=== PATIENT | female | born 1980 | race Caucasian/White ===

== ENCOUNTER 2020-07-21 09:50 | Outpatient (CLI) | payer BC ==
--- NOTE | 2020-07-21 11:40 | Ultrasound Report ---
ULTRASOUND RENAL INDICATION / CLINICAL INFORMATION: LOW BACK PAIN. COMPARISON: None available. FINDINGS: RIGHT KIDNEY: Length = 10.5 cm. [normal > 9 cm] - Parenchymal Thickness = 1.6 cm. [normal > 1.5 cm] - Echogenicity: Normal. - Hydronephrosis: None. - Cyst or mass: No significant abnormality. - Stones: None seen. LEFT KIDNEY: Length = 10.9 cm. [normal > 9 cm] - Parenchymal Thickness = 1.5 cm. [normal > 1.5 cm] - Echogenicity: Normal. - Hydronephrosis: None. - Cyst or mass: No significant abnormality. - Stones: None seen. URINARY BLADDER: No significant abnormality. FREE FLUID: None. ADDITIONAL FINDINGS: The visualized liver appears mildly echogenic consistent with steatosis. IMPRESSION: Unremarkable kidneys and bladder. Mild hepatic steatosis. Signer Name: Israel Beaulieu Jr, MD Signed: 07/21/2020 11:36 AM Workstation Name: [id number]
== END 2020-07-21 09:51 | disposition home or self-care (01) ==
LOC: US 09:50
PROVIDERS: ATTEND Obstetrics & Gynecology
DX: K76.0 Fatty (change of) liver, not elsewhere classified (principal)
CPT/HCPCS: 76770